=== PATIENT | female | born 1975 | race Caucasian/White ===

== ENCOUNTER 2021-07-07 12:10 | Emergency (ER) | payer OTHER | END 2021-07-07 12:53 | disposition left against medical advice (07) | LOC: ER 12:10 | DX: R05.9 Cough, unspecified (principal); R09.89 Other specified symptoms and signs involving the circulatory and respiratory systems; Z53.21 Procedure and treatment not carried out due to patient leaving prior to being seen by health care provider ==

== ENCOUNTER → 2021-07-07 | Outpatient (CLI) | payer BC | LOC: RAD 14:02 | PROVIDERS: ATTEND Family Medicine | DX: R05.9 Cough, unspecified (principal) ==